=== PATIENT | male | born 1960 | race Caucasian/White ===

== ENCOUNTER 2016-08-21 09:03 | Emergency (ER) | payer OTHER ==
[~2016-08-21] VITALS: Ht 177.8 cm; Wt 97.3 kg
[~2016-08-21 09:03] MED LIST: TYLENOL 500MG500 MG PO; ZANTAC 150MG T150 MG PO
[2016-08-21 09:46] LABS: BASO % 0.4 % (0.0-2.0); EOS # 0.2 (0.0-0.7); EOS % 1.8 % (0-4.0); GRAN # 6.6 (1.4-6.5); GRAN % 79.4 % (42.2-75.2); HEMATOCRIT 45.9 % (42.0-52.0); HEMOGLOBIN 16.1 g/dl (13.5-18.0); LYMPH % 11.5 % (20.0-51.0); MEAN CELL VOLUME 89 fl (80.0-100.0); MEAN CORPUSCULAR HEMOGLOBIN 31 pg (27.0-31.0); MEAN CORPUSCULAR HGB CONC 35 g/dl (33.0-37.0); MONO # 0.5 (0.1-0.6); MONO % 6.5 % (1.7-9.3); PLATELET COUNT 264 K/mm3 (130-400); RED BLOOD COUNT 5.18 M/mm3 (4.20-5.60); WHITE BLOOD COUNT 8.3 K/mm3 (4.8-10.8)
[2016-08-21] MEDS ORDERED: ASPIRIN E.C. 8181 MG PO (09:53)
[2016-08-21] MEDS ORDERED: NEXIUM 20MG20 MG PO (09:53)
[2016-08-21 10:04] LABS: ADJUSTED CALCIUM 9.3 mg/dL (8.4-10.2); ALBUMIN 4.1 gm/dL (3.5-5.0); BILIRUBIN,TOTAL 0.8 mg/dL (0.0-1.0); CALCIUM 9.4 mg/dL (8.4-10.2); CREATININE, serum 0.69 mg/dL (0.66-1.25); POTASSIUM 4.2 mmol/L (3.4-5.0); TOTAL PROTEIN 6.8 gm/dL (6.4-8.2)
[2016-08-21 10:15] LABS: TROPONIN-I 0.029 ng/mL (0.000-0.034)
[2016-08-21] MEDS ORDERED: XARELTO20 MG PO (10:48)
[2016-08-21 11:43] VITALS: BP 142/121; PULSE 74; TEMP 97.8
[2016-12-18] MEDS ORDERED: ELIQUIS 5MG PO (09:26)
[2016-12-18] MEDS ORDERED: ASPIRIN E.C. 8181 MG PO (09:27)
[2016-12-18] MEDS ORDERED: VASOTEC 5MG5 MG/TAB PO (09:28)
[2016-12-18] MEDS ORDERED: NORCO 325 MG-51 TAB PO (13:48)
== END 2016-08-21 11:45 | disposition home or self-care (01) ==
LOC: COL.ER 09:03
PROVIDERS: Emergency Medicine
DX: I48.91 Unspecified atrial fibrillation (principal); I10 Essential (primary) hypertension; Z79.01 Long term (current) use of anticoagulants

== ENCOUNTER → 2016-08-26 | Outpatient (CLI) | payer OTHER ==
[~2016-08-26] VITALS: Ht 177.8 cm; Wt 97.0 kg
[~2016-08-26] MED LIST changes: +ASPIRIN E.C. 8181 MG PO; +ELIQUIS 5MG PO; +NEXIUM 20MG20 MG PO; +NORCO 325 MG-51 TAB PO; +VASOTEC 5MG5 MG/TAB PO; +XARELTO20 MG PO
[2016-08-26 10:55] VITALS: BP 169/105; PULSE 69
[2016-08-26 12:05] VITALS: BP 153/93; PULSE 71
[2016-08-26 12:08] VITALS: BP 157/99; PULSE 96
[2016-08-26 12:10] VITALS: BP 145/86; PULSE 89
== END ==
LOC: COL.CARD 10:27
DX: I48.0 Paroxysmal atrial fibrillation (principal)
CPT/HCPCS: A9502; J2785

== ENCOUNTER → 2016-09-16 | Outpatient (CLI) | payer OTHER | LOC: COL.CARD 07:16 | DX: I48.0 Paroxysmal atrial fibrillation (principal) ==

== ENCOUNTER → 2016-12-18 | Day surgery (SDC) | payer OTHER ==
[~2016-12-18] VITALS: Ht 177.8 cm; Wt 97.2 kg
[2016-12-18 08:40] VITALS: BP 155/93; PULSE 57; TEMP 97.7
[2016-12-18 12:31] VITALS: BP 124/78; PULSE 59
[2016-12-18 12:46] VITALS: BP 130/92; PULSE 61
[2016-12-18 13:01] VITALS: BP 135/90; PULSE 55
[2016-12-18 13:16] VITALS: BP 133/94; PULSE 50
[2016-12-18 14:00] VITALS: BP 135/82; PULSE 89
== END ==
LOC: SDCO 11-13 07:30
DX: D17.0 Benign lipomatous neoplasm of skin and subcutaneous tissue of head, face and neck (principal); D23.5 Other benign neoplasm of skin of trunk; I10 Essential (primary) hypertension; K21.9 Gastro-esophageal reflux disease without esophagitis; I48.91 Unspecified atrial fibrillation; Z79.01 Long term (current) use of anticoagulants; Z85.51 Personal history of malignant neoplasm of bladder
CPT/HCPCS: J0360; J0690; J2250; J2704; J3010; J7120

== ENCOUNTER → 2017-07-17 | Outpatient (CLI) | payer BC ==
[~2017-07-17] MED LIST changes: +MULTAQ400 MG PO; +NITROSTAT0.4 MG/TAB SL
== END ==
LOC: COL.RAD 13:58
DX: Z85.51 Personal history of malignant neoplasm of bladder (principal); N28.89 Other specified disorders of kidney and ureter; Z90.79 Acquired absence of other genital organ(s)
CPT/HCPCS: Q9967

== ENCOUNTER 2017-08-15 08:38 | Day surgery (SDC) | payer BC ==
[~2017-08-15] VITALS: Ht 177.8 cm; Wt 98.8 kg
[2017-08-15 10:25] VITALS: BP 137/90; PULSE 64; TEMP 98
[2017-08-15 13:50] VITALS: BP 145/87; PULSE 70
[2017-08-15 14:02] VITALS: TEMP 98.1
[2017-08-15 14:05] VITALS: BP 152/104; PULSE 67
[2017-08-15 14:20] VITALS: BP 106/101; PULSE 61
== END 2017-08-15 15:00 | disposition home or self-care (01) ==
LOC: SDCO 08:38
DX: C65.2 Malignant neoplasm of left renal pelvis (principal); Z85.51 Personal history of malignant neoplasm of bladder; I48.91 Unspecified atrial fibrillation; Z79.01 Long term (current) use of anticoagulants; N40.0 Benign prostatic hyperplasia without lower urinary tract symptoms; I10 Essential (primary) hypertension; Z85.72 Personal history of non-Hodgkin lymphomas; K21.9 Gastro-esophageal reflux disease without esophagitis; Z87.442 Personal history of urinary calculi
CPT/HCPCS: C1769; J0690; J1100; J2405; J2704; J3010; J7120; Q9967

== ENCOUNTER 2017-08-21 14:03 | Inpatient (IN) | payer BC ==
[~2017-08-21] VITALS: Ht 175.3 cm; Wt 99.1 kg
[2017-09-03] VITALS (11 sets, daily range): BP systolic 33–1216; BP diastolic 73–87; PULSE 54–64; TEMP 98–99.2
[2017-09-03 11:54] LABS: HEMATOCRIT 40.7 % (42.0-52.0); HEMOGLOBIN 13.9 g/dl (13.5-18.0); MEAN CELL VOLUME 92 fl (80.0-100.0); MEAN CORPUSCULAR HEMOGLOBIN 31 pg (27.0-31.0); MEAN CORPUSCULAR HGB CONC 34 g/dl (33.0-37.0); MEAN PLATELET VOLUME 8.7 fl (7.4-10.4); PLATELET COUNT 286 K/mm3 (130-400); RED BLOOD COUNT 4.42 M/mm3 (4.20-5.60); REDCELL DISTRIBUTION WIDTH-CV 12.5 % (11.5-14.5)
[2017-09-03 11:59] LABS: CALCIUM 8.8 mg/dL (8.4-10.2); CREATININE, serum 1.24 mg/dL (0.66-1.25)
[2017-09-03 12:41] LABS: BAND 7 % (0-10); LYMPHOCYTE 9 % (20.0-51.0); NEUTROPHILS 83 % (42.0-75.2); PLATELET ESTIMATE NORMAL (NORMAL)
[2017-09-04 02:07] VITALS: BP 108/66; PULSE 58; TEMP 98.5
[2017-09-04 05:50] VITALS: BP 109/75; PULSE 58; TEMP 98.2
[2017-09-04 07:05] LABS: BASO % 0.2 % (0.0-2.0); EOS # 0.1 (0.0-0.7); EOS % 0.7 % (0-4.0); GRAN # 7.7 (1.4-6.5); GRAN % 74.3 % (42.2-75.2); HEMATOCRIT 37.6 % (42.0-52.0); HEMOGLOBIN 12.5 g/dl (13.5-18.0); LYMPH # 1.5 (1.2-3.4); LYMPH % 14.8 % (20.0-51.0); MEAN CELL VOLUME 91 fl (80.0-100.0); MEAN CORPUSCULAR HEMOGLOBIN 30 pg (27.0-31.0); MEAN CORPUSCULAR HGB CONC 33 g/dl (33.0-37.0); MEAN PLATELET VOLUME 8.9 fl (7.4-10.4); MONO % 9.4 % (1.7-9.3); PLATELET COUNT 264 K/mm3 (130-400); RED BLOOD COUNT 4.12 M/mm3 (4.20-5.60); REDCELL DISTRIBUTION WIDTH-CV 12.5 % (11.5-14.5)
[2017-09-04 07:18] LABS: CALCIUM 8.5 mg/dL (8.4-10.2); CREATININE, serum 1.43 mg/dL (0.66-1.25); POTASSIUM 4.2 mmol/L (3.4-5.0)
[2017-09-04 10:24] VITALS: BP 104/65; PULSE 58; TEMP 98.5
[2017-09-04 13:25] VITALS: BP 101/61; PULSE 54; TEMP 98.1
[2017-09-04 17:31] VITALS: BP 116/71; PULSE 50; TEMP 97.4
[2017-09-04 20:54] VITALS: BP 114/63; PULSE 53; TEMP 98.3
[2017-09-05 02:18] VITALS: BP 118/76; PULSE 50; TEMP 98.5
[2017-09-05 05:12] VITALS: BP 115/73; PULSE 51; TEMP 98
[2017-09-05 10:15] VITALS: BP 117/64; PULSE 60; TEMP 98.2
[2017-09-05 13:28] VITALS: BP 132/72; PULSE 59; TEMP 98.1
== END 2017-09-05 14:38 | disposition home or self-care (01) | DRG 658 ==
LOC: INPTSU 09-03 06:07 → SURG 09-03 08:00
PROVIDERS: Urology
PROC: 0TT70ZZ Resection of Left Ureter, Open Approach (ICD-10-PCS; 2017-09-03)
PROC: 0TT10ZZ Resection of Left Kidney, Open Approach (ICD-10-PCS; principal; 2017-09-03 08:00)
DX: C65.2 Malignant neoplasm of left renal pelvis (principal); Z85.51 Personal history of malignant neoplasm of bladder; I10 Essential (primary) hypertension
CPT/HCPCS: A4314; J0461; J0690; J1100; J1650; J2250; J2405; J2704; J2710; J2765; J2795; J3010; J7120

== ENCOUNTER → 2017-09-10 | Outpatient (CLI) | payer BC | LOC: COL.RAD 11:00 | DX: C65.2 Malignant neoplasm of left renal pelvis (principal); Z98.890 Other specified postprocedural states; Z90.5 Acquired absence of kidney | CPT/HCPCS: Q9967 ==

== ENCOUNTER 2018-04-22 07:53 | Day surgery (SDC) | payer BC ==
[~2018-04-22] VITALS: Ht 175.3 cm; Wt 100.0 kg
[2018-04-22 08:28] VITALS: BP 131/93; PULSE 88; TEMP 97.9
[2018-04-22 09:16] LABS: CREATININE, serum 1.09 mg/dL (0.66-1.25); POTASSIUM 4.2 mmol/L (3.4-5.0)
[2018-04-22 20:18] VITALS: BP 119/68; PULSE 69; TEMP 97.6
[2018-04-23 00:55] VITALS: BP 106/62; PULSE 60; TEMP 98.1
[2018-04-23 04:37] VITALS: BP 125/72; PULSE 61; TEMP 97.7
[2018-04-23 06:18] LABS: BASO % 0.2 % (0.0-2.0); EOS % 0.2 % (0-4.0); GRAN # 14.5 (1.4-6.5); GRAN % 87.5 % (42.2-75.2); HEMATOCRIT 39.5 % (42.0-52.0); HEMOGLOBIN 13.5 g/dl (13.5-18.0); LYMPH # 1.1 (1.2-3.4); LYMPH % 6.9 % (20.0-51.0); MEAN CELL VOLUME 89 fl (80.0-100.0); MEAN CORPUSCULAR HEMOGLOBIN 30 pg (27.0-31.0); MEAN CORPUSCULAR HGB CONC 34 g/dl (33.0-37.0); MEAN PLATELET VOLUME 8.7 fl (7.4-10.4); MONO # 0.8 (0.1-0.6); MONO % 4.5 % (1.7-9.3); PLATELET COUNT 262 K/mm3 (130-400); RED BLOOD COUNT 4.45 M/mm3 (4.20-5.60); REDCELL DISTRIBUTION WIDTH-CV 12.1 % (11.5-14.5)
[2018-04-23 08:18] VITALS: BP 141/85; PULSE 65; TEMP 98.9
[2018-04-23 12:36] VITALS: BP 136/90; PULSE 60; TEMP 98
== END 2018-04-23 14:21 | disposition home or self-care (01) ==
LOC: SDCO 07:53 → SURG 14:00 → SDCO 04-23 14:21
PROVIDERS: Nurse Anesthetist, Certified Registered; Urology
DX: C67.1 Malignant neoplasm of dome of bladder (principal); C67.9 Malignant neoplasm of bladder, unspecified; N20.0 Calculus of kidney; Z87.442 Personal history of urinary calculi; N40.0 Benign prostatic hyperplasia without lower urinary tract symptoms; I10 Essential (primary) hypertension; I48.91 Unspecified atrial fibrillation; Z79.01 Long term (current) use of anticoagulants; Z79.899 Other long term (current) drug therapy; Z90.5 Acquired absence of kidney; Z90.6 Acquired absence of other parts of urinary tract; Z85.53 Personal history of malignant neoplasm of renal pelvis; Z85.51 Personal history of malignant neoplasm of bladder; K21.9 Gastro-esophageal reflux disease without esophagitis
CPT/HCPCS: OP; C1769; J0690; J1100; J2270; J2405; J2704; J3010; J3480; J7120; J9280; Q9967

== ENCOUNTER 2018-07-15 07:34 | Day surgery (SDC) | payer BC ==
[~2018-07-15] VITALS: Ht 177.8 cm; Wt 100.1 kg
[2018-07-15] VITALS (8 sets, daily range): BP systolic 118–143; BP diastolic 70–85; PULSE 50–61; TEMP 97.7–98.3
[2018-07-15] MEDS ORDERED: ELIQUIS 5MG PO (08:15)
[2018-07-16 00:14] VITALS: BP 124/61; PULSE 57; TEMP 98.3
[2018-07-16 03:58] VITALS: BP 119/77; PULSE 80; TEMP 98.6
[2018-07-16 09:12] VITALS: BP 116/63; PULSE 61; TEMP 98.6
== END 2018-07-16 11:56 | disposition home or self-care (01) ==
LOC: SDCO 07:34 → MEDICAL 12:55 → SURG 18:40 → SDCO 07-16 11:56
DX: C67.9 Malignant neoplasm of bladder, unspecified (principal); Z85.51 Personal history of malignant neoplasm of bladder; N40.0 Benign prostatic hyperplasia without lower urinary tract symptoms; Z85.53 Personal history of malignant neoplasm of renal pelvis; Z87.442 Personal history of urinary calculi; Z90.5 Acquired absence of kidney; Z79.899 Other long term (current) drug therapy; Z85.72 Personal history of non-Hodgkin lymphomas
CPT/HCPCS: A9284; J0690; J2405; J2704; J3010; J7120; J9280

== ENCOUNTER 2019-01-27 07:55 | Day surgery (SDC) | payer BC ==
[~2019-01-27] VITALS: Ht 177.8 cm; Wt 96.1 kg
[2019-01-27] VITALS (10 sets, daily range): BP systolic 124–141; BP diastolic 82–102; PULSE 52–74; TEMP 97.5–98.2
[2019-01-27] MEDS ORDERED: MULTAQ400 MG PO (08:42)
--- NOTE | 2019-01-27 12:30 | NUR ---
PATIENT ARRIVED TO ROOM 321-2 VIA BED FROM PACU. PATIENT IS A&OX4. POST-OP VSS. BOWEL SOUNDS ACTIVE ALL FOUR QUADRANTS. PATIENT TOLERATING CLEAR LIQUIDS WITHOUT ANY COMPLAINTS OF N/V. IV FLUIDS INFUSING TO LEFT HAND IV VIA GRAVITY FLOW TUBING. 3-WAY MASTERS CATHETER DRAINAGE CLEAR, PALE-YELLOW URINE WITH CBI INFUSING AT A MODERATE RATE. PRESENT AT THE BEDSIDE. CALL LIGHT WITHIN REACH. PATIENT DENIES ANY OTHER NEEDS AT THIS TIME.
--- NOTE | 2019-01-27 13:56 | NUR ---
Spoke with pt and his upon arrival to the floor. He reports having difficulty holding the mitomycin last time which is why they were hoping to do it in PACU but he recieved a B&O suppository and at 1335 following chemotherapy precautions, I instilled 40mg of mitomycin in 40ml into his clamped yen catheter. He and his will follow the routine of turning every 15 minutes and I will check on them periodically. He was given printed instructions regarding post mitomycin instillation. I emptied 900ml of pale yellow urine out of his yen bag prior to clamping his yen.
--- NOTE | 2019-01-27 14:20 | NUR ---
PATIENT IS EATING, DRINKING AND VOIDING WITHOUT DIFFICULTY. PATIENT PULLED OUT HIS LEFT HAND IV.
--- NOTE | 2019-01-27 15:00 | NUR ---
Pt is asleep at this check and tolerating having catheter clamped well. Will not awaken. is at bedside and denies questions or concerns. Will plan to prime and pull yen upon completion of mitomycin dwell time.
--- NOTE | 2019-01-27 16:11 | NUR ---
Called to bedside at 1525 to request that yen be unclamoped. This was 10 minutes early but I did unclamp the catheter and 500ml of clear purple tinted urine was returned. I then flushed bladder with 200ml of CBI which remained clear with no clots. i removed 30ml from yen catheter and removed the yen without difficulty. Penis cleansed. pt aware that must now do 6 bottle routine to verify ability to void. Planning on discharge later today. Chemotherapy precautions remain in effect with appropriate signage and supplies available. Report given to Sidra REYNOSO.
--- NOTE | 2019-01-27 17:30 | NUR ---
PATIENT DISCHARGE INSTRUCTIONS REVIEWED. ALL QUESTIONS ANSWERED. PATIENT PERSONAL BELONGINGS GATHERED. PATIENT AMBULATED TO PERSONAL VEHICLE WITH SURGICAL STAFF. PATIENT DISCHARGED.
== END 2019-01-27 17:30 | disposition home or self-care (01) ==
LOC: SDCO 07:55 → SURG 12:23 → SDCO 17:30
DX: C67.9 Malignant neoplasm of bladder, unspecified (principal); Z85.51 Personal history of malignant neoplasm of bladder; Z85.53 Personal history of malignant neoplasm of renal pelvis; N40.1 Benign prostatic hyperplasia with lower urinary tract symptoms; R31.9 Hematuria, unspecified; R35.0 Frequency of micturition; R35.1 Nocturia; R39.15 Urgency of urination; Z87.442 Personal history of urinary calculi; I10 Essential (primary) hypertension; Z90.5 Acquired absence of kidney; Z90.6 Acquired absence of other parts of urinary tract; Z85.72 Personal history of non-Hodgkin lymphomas; Z79.01 Long term (current) use of anticoagulants; Z79.899 Other long term (current) drug therapy; K21.9 Gastro-esophageal reflux disease without esophagitis
CPT/HCPCS: OP; J0690; J2405; J2704; J3010; J7120; J9280; Q9967

== ENCOUNTER 2019-04-27 12:06 | Observation (INO) | payer BC ==
[2019-04-27] VITALS (7 sets, daily range): BP systolic 115–150; BP diastolic 76–86; PULSE 50–66; TEMP 97.8–98.9
[~2019-04-27] VITALS: Ht 177.8 cm; Wt 96.3 kg
[2019-04-27] MEDS ORDERED: ELIQUIS 5MG PO (14:12)
[2019-04-27 16:27] LABS: BASO % 0.3 % (0.0-2.0); EOS # 0.2 (0.0-0.7); EOS % 1.5 % (0-4.0); GRAN # 8.1 (1.4-6.5); GRAN % 80.4 % (42.2-75.2); HEMATOCRIT 39.9 % (42.0-52.0); HEMOGLOBIN 13.4 g/dl (13.5-18.0); LYMPH # 1.2 (1.2-3.4); MEAN CELL VOLUME 90 fl (80.0-100.0); MEAN CORPUSCULAR HEMOGLOBIN 30 pg (27.0-31.0); MEAN CORPUSCULAR HGB CONC 34 g/dl (33.0-37.0); MONO # 0.5 (0.1-0.6); MONO % 5.2 % (1.7-9.3); PLATELET COUNT 271 K/mm3 (130-400); RED BLOOD COUNT 4.44 M/mm3 (4.20-5.60); REDCELL DISTRIBUTION WIDTH-CV 12.5 % (11.5-14.5)
[2019-04-27 16:30] LABS: INR 1.1 (0.8-3.0); PROTHROMBIN TIME 12.4 SECONDS (9.7-12.8)
[2019-04-27 16:49] LABS: ALANINE AMINOTRANSFERASE 23 U/L (21-72); ALBUMIN 4.2 gm/dL (3.5-5.0); ALKALINE PHOSPHATASE 84 U/L (50-136); ANION GAP 7 mmol/L (7-16); AST,SGOT 55 U/L (15-37); BILIRUBIN,TOTAL 0.5 mg/dL (0.0-1.0); BLOOD UREA NITROGEN 15 mg/dL (9-20); CARBON DIOXIDE 28 mmol/L (22-30); CHLORIDE 101 mmol/L (98-107); CHOLESTEROL 169 mg/dL (120-200); CHOLESTEROL RISK RATIO 4.5; CREATININE, serum 0.99 (0.66-1.25); GLUCOSE 85 mg/dL (74-106); HDL CHOLESTEROL 37 mg/dL; LDL CHOLESTEROL 101 mg/dL; MAGNESIUM 1.9 mg/dL (1.6-2.3); POTASSIUM 4.4 mmol/L (3.4-5.0); SODIUM 137 mmol/L (137-145); TOTAL PROTEIN 6.8 gm/dL (6.4-8.2); TRIGLYCERIDE 157 mg/dL
[2019-04-27 17:00] LABS: TROPONIN-I < 0.012 ng/mL (0.000-0.035)
--- NOTE | 2019-04-27 18:45 | NUR ---
Pt in room 308 at this time. He walked into room independently. He is A/O x4. His breathing is even and unlabored on RA. Pt denies SOB. Currently denies CP, during conversation patient reports slight pain returning to L chest. No N/T at this time. Reports recent increase of activity with use of L shoulder, unable to tell if it is shoulder/chest pain. Reports he checked his pulse which was regular, but has history of Afib. Pt does report some dizziness, worse with standing up quickly. Pt encouraged to change positions slowly. POC discussed with patient. Who will be on clear liquids until midnight followed by only bowel prep. Instructions to not consume caffeine discussed with patient. IV started to RFA. Tele in place. No needs at this time, call light within reach.
--- NOTE | 2019-04-27 19:50 | NUR ---
Shift assessment complete. Pt resting in bed, awake, a&o, cooperative c cares. Pt denies pain or other c/o at this time. IV patent. Tele in place. Pt denies needs. Call light in reach, will continue to monitor.
[2019-04-28] VITALS (13 sets, daily range): BP systolic 116–154; BP diastolic 59–90; PULSE 53–96; TEMP 97.9–98.5
[2019-04-28 06:10] LABS: BASO % 0.4 % (0.0-2.0); EOS # 0.3 (0.0-0.7); EOS % 4.2 % (0-4.0); GRAN # 4.3 (1.4-6.5); GRAN % 63.2 % (42.2-75.2); HEMOGLOBIN 12.2 g/dl (13.5-18.0); LYMPH # 1.6 (1.2-3.4); LYMPH % 23.3 % (20.0-51.0); MEAN CELL VOLUME 91 fl (80.0-100.0); MEAN CORPUSCULAR HEMOGLOBIN 30 pg (27.0-31.0); MEAN CORPUSCULAR HGB CONC 33 g/dl (33.0-37.0); MEAN PLATELET VOLUME 8.9 fl (7.4-10.4); MONO # 0.6 (0.1-0.6); MONO % 8.2 % (1.7-9.3); PLATELET COUNT 259 K/mm3 (130-400); RED BLOOD COUNT 4.09 M/mm3 (4.20-5.60); REDCELL DISTRIBUTION WIDTH-CV 12.7 % (11.5-14.5)
[2019-04-28 06:25] LABS: ANION GAP 7 mmol/L (7-16); BLOOD UREA NITROGEN 16 mg/dL (9-20); CALCIUM 8.5 mg/dL (8.4-10.2); CARBON DIOXIDE 28 mmol/L (22-30); CHLORIDE 103 mmol/L (98-107); CREATININE, serum 1.04 (0.66-1.25); GLUCOSE 85 mg/dL (74-106); MAGNESIUM 1.9 mg/dL (1.6-2.3); POTASSIUM 4.3 mmol/L (3.4-5.0); SODIUM 138 mmol/L (137-145)
[2019-04-28 06:35] LABS: TROPONIN-I < 0.012 ng/mL (0.000-0.035)
--- NOTE | 2019-04-28 08:12 | NUR ---
Pt down to endo at this time.
--- NOTE | 2019-04-28 09:19 | NUR ---
Pt back from colonoscopy. POC discussed with patient. No pain at this time.
--- NOTE | 2019-04-28 10:00 | NUR ---
Pt having loop recorder placed at this time.
--- NOTE | 2019-04-28 10:38 | NUR ---
Loop recorder placed. Pt comfortable at this time. Dressing to mid chest CDI. POC discussed with patient who verbalizes understanding.
--- NOTE | 2019-04-28 10:52 | NUR ---
Pt down for lexiscan at this time.
--- NOTE | 2019-04-28 12:05 | NUR ---
Pt assessment complete. At this time. Pt has finished procedures this am. No pain at this time. Pt asking if he can eat. POC discussed with patient who verbalizes understanding. Will await the doctor to see patient for further recommendations/orders. IVF hooked up to patient. No needs at this time. Call light within reach.
--- NOTE | 2019-04-28 15:36 | NUR ---
SW met with the patient, patient's (Lesia #[phone]), son-in-law, and [id number] to discuss discharge plan. The patient lives in [place] with his . He reports independence with ADLs and does not have any DME. The patient's PCP is Lance Venegas PA-C and he receives his medications from [facility]. He reports no difficulties obtaining his meds. The patient does not have advanced directives in EMR, but he states that he does have them completed. He states that his is his DPOA-HC. The patient plans to return back home with his upon discharge. No additional needs at this time.
[2019-04-28] MEDS ORDERED: LIPITOR 10MG10 MG PO (16:31)
--- NOTE | 2019-04-28 18:09 | NUR ---
Discharge paperwork and instructions reviewed with patient and . All questions answered at this time. IV to RFA dc'd catheter tip intact. RX for Keflex called in to patient's pharmacy. Pt walked out of facility at this time.
== END 2019-04-28 18:10 | disposition home or self-care (01) ==
LOC: MEDICAL 12:06
PROVIDERS: ADMIT Internal Medicine
DX: D12.0 Benign neoplasm of cecum (principal); I48.0 Paroxysmal atrial fibrillation; K92.1 Melena; K64.0 First degree hemorrhoids; K57.30 Diverticulosis of large intestine without perforation or abscess without bleeding; K21.9 Gastro-esophageal reflux disease without esophagitis; Z79.01 Long term (current) use of anticoagulants; F41.9 Anxiety disorder, unspecified; I10 Essential (primary) hypertension; Z85.51 Personal history of malignant neoplasm of bladder; Z90.5 Acquired absence of kidney; Z82.49 Family history of ischemic heart disease and other diseases of the circulatory system; Z82.3 Family history of stroke
CPT/HCPCS: A9500; C1764; G0008; G0378; J2250; J2405; J2765; J2785; J3010; J7030

== ENCOUNTER 2019-04-30 10:02 | Inpatient (IN) | payer BC ==
[~2019-04-30] VITALS: Ht 177.8 cm; Wt 100.4 kg
[~2019-04-30 10:02] MED LIST changes: +LIPITOR 10MG10 MG PO
[2019-04-30 11:00] VITALS: BP 116/73; PULSE 71
[2019-04-30 11:20] LABS: BASO % 0.5 % (0.0-2.0); EOS # 0.1 (0.0-0.7); EOS % 1.5 % (0-4.0); GRAN # 6.8 (1.4-6.5); GRAN % 79.7 % (42.2-75.2); HEMOGLOBIN 10.3 g/dl (13.5-18.0); LYMPH # 0.9 (1.2-3.4); LYMPH % 10.4 % (20.0-51.0); MEAN CELL VOLUME 92 fl (80.0-100.0); MEAN CORPUSCULAR HEMOGLOBIN 30 pg (27.0-31.0); MEAN CORPUSCULAR HGB CONC 33 g/dl (33.0-37.0); MONO # 0.6 (0.1-0.6); MONO % 7.4 % (1.7-9.3); PLATELET COUNT 255 K/mm3 (130-400); RED BLOOD COUNT 3.44 M/mm3 (4.20-5.60); REDCELL DISTRIBUTION WIDTH-CV 12.8 % (11.5-14.5)
[2019-04-30 11:24] LABS: HEMATOCRIT 31.6 % (42.0-52.0)
[2019-04-30 11:26] LABS: ALBUMIN 3.6 gm/dL (3.5-5.0); BILIRUBIN,TOTAL 0.3 mg/dL (0.0-1.0); CALCIUM 8.5 mg/dL (8.4-10.2); CREATININE, serum 1.12 (0.66-1.25); POTASSIUM 4.7 mmol/L (3.4-5.0); PROTHROMBIN TIME 11.2 SECONDS (9.7-12.8); TOTAL PROTEIN 5.9 gm/dL (6.4-8.2)
[2019-04-30 11:29] LABS: PARTIAL THROMBOPLASTIN TIME 27.4 SECONDS (26.0-37.0)
[2019-04-30] MEDS ORDERED: CEPHALEXIN500 M1 PO (11:56)
--- NOTE | 2019-04-30 13:18 | NUR ---
PATIENT ADMITED INTO ROOM 331 FROM ER WITH GI BLEED. PATIENT WAS SCHEDULED TO HAVE APT WITH TO DISCUSS RESULTS FROM RECENT COLONOSCOPY/BIOSPIES. ER REPORTED HAS BEEN NOTIFIED AND WILL SEE PATIENT LATER TODAY. PATIENT REPORTS HAVING BLOOD IN STOOLS, NOT SEEN BY NURSING YET. PATIENT ALSO TAKES ELIQUIS FOR HX OF A-FIB, LAST DOSE TAKEN WAS FRIDAY. TELE INPLACE. NPO. NS AT 125 INFUSING INTO LEFT AC IV VIA PUMP. HEAD TO TOE ASSESSMENT WNL. HEART SOUNDS REGULAR. ORIENTED TO ROOM. AT BEDSIDE. CALL LIGHT IN REACH.
[2019-04-30 13:28] VITALS: BP 127/79; PULSE 57; TEMP 98.9
[2019-04-30] MEDS ORDERED: ELIQUIS 5MG PO (13:35)
[2019-04-30 16:20] VITALS: BP 121/76; PULSE 59; TEMP 98.6
[2019-04-30 17:17] LABS: HEMATOCRIT 27.9 % (42.0-52.0); HEMOGLOBIN 9.1 g/dl (13.5-18.0)
[2019-04-30 20:00] VITALS: BP 124/78; PULSE 77; TEMP 98.2
[2019-04-30 21:18] VITALS: BP 122/76; PULSE 72; TEMP 98.4
--- NOTE | 2019-04-30 21:39 | NUR ---
Report received from ANGELES Mcclure. Patient resting in bed. Assessment complete. Family in room. Lungs CTA. Bowels active. Second dose of pre op antibiotics given. Bowel prep started. NS infusing at 125 ml/hr. Denies any pain at this time. No further needs at this time. Call light within reach.
--- NOTE | 2019-04-30 23:15 | NUR ---
Patient reports a headache and feeling nauseated. Called DWA[facility] Pichardo and received an order for tylenol and zofran. Adminsitered and will continue to monitor.
[2019-05-01] VITALS (12 sets, daily range): BP systolic 121–163; BP diastolic 67–678; PULSE 44–88; TEMP 97.9–98.6
--- NOTE | 2019-05-01 06:02 | NUR ---
Patient had uneventful night. Had one episode of nausea and a headache. Tylenol and zofran given. Bowel prep given. No further needs at this time. Call light within reach
--- NOTE | 2019-05-01 07:08 | NUR ---
Report given to ANGELES Lopez
[2019-05-01 07:29] LABS: CALCIUM 7.8 mg/dL (8.4-10.2); CREATININE, serum 1.02 (0.66-1.25); POTASSIUM 4.3 mmol/L (3.4-5.0)
[2019-05-01 07:49] LABS: BASO % 0.3 % (0.0-2.0); EOS # 0.3 (0.0-0.7); EOS % 4.2 % (0-4.0); GRAN # 4.9 (1.4-6.5); GRAN % 74.7 % (42.2-75.2); LYMPH # 0.9 (1.2-3.4); LYMPH % 13.9 % (20.0-51.0); MEAN CELL VOLUME 92 fl (80.0-100.0); MEAN CORPUSCULAR HGB CONC 34 g/dl (33.0-37.0); MEAN PLATELET VOLUME 9.2 fl (7.4-10.4); MONO # 0.4 (0.1-0.6); MONO % 6.6 % (1.7-9.3); PLATELET COUNT 232 K/mm3 (130-400); RED BLOOD COUNT 2.97 M/mm3 (4.20-5.60); REDCELL DISTRIBUTION WIDTH-CV 12.9 % (11.5-14.5)
[2019-05-01 07:55] LABS: HEMATOCRIT 27.2 % (42.0-52.0); HEMOGLOBIN 9.1 g/dl (13.5-18.0); MEAN CORPUSCULAR HEMOGLOBIN 31 pg (27.0-31.0)
--- NOTE | 2019-05-01 09:00 | NUR ---
No complaints. Dr. Gutierrez saw patient. NPO for surgery.
--- NOTE | 2019-05-01 12:21 | NUR ---
Engineering Geologist stopped by and prayed and offered support with patient while family was in room.
--- NOTE | 2019-05-01 13:55 | NUR ---
To surgery per bed with OR staff. Family here.
--- NOTE | 2019-05-01 19:00 | NUR ---
Patient arrived to unit from PACU. Patient is drowsy by oriented. Patient is complaining of nausea and pain. Patient has been sleeping on and off during assessment. Patient has 4 lap sites on the left side of the abdomen and a mini incision on the right. Patient has an IV in the Right AC and a yen catheter.
[2019-05-02] VITALS (8 sets, daily range): BP systolic 11–155; BP diastolic 60–96; PULSE 63–81; TEMP 97.9–98.8
--- NOTE | 2019-05-02 01:24 | NUR ---
Dr. Gutierrez notified about urine output (375ml since 1899), dark tea colored urine, and right flank pain. Vital signs stable. Fluids continue 75ml/hour. He states to continue to monitor.
--- NOTE | 2019-05-02 05:06 | NUR ---
Patient noted to have 25-30ml out of catheter since 0100. Urine appears to be slightly manufacturing project manager in color. Catheter advanced and flushed with 10ml NS and the NS was returned into the tubing. Notified Kylee of low output and she ordered 1000ml of NS over 2 hours and increase rate of LR to 125ml/hr after bolus is complete. Education provided to patient and spouse. Will continue to monitor.
[2019-05-02 06:17] LABS: MEAN CELL VOLUME 90 fl (80.0-100.0); MEAN CORPUSCULAR HGB CONC 34 g/dl (33.0-37.0); MEAN PLATELET VOLUME 9.2 fl (7.4-10.4); PLATELET COUNT 227 K/mm3 (130-400); REDCELL DISTRIBUTION WIDTH-CV 12.5 % (11.5-14.5)
[2019-05-02 06:19] LABS: HEMATOCRIT 25.3 % (42.0-52.0); HEMOGLOBIN 8.5 g/dl (13.5-18.0); MEAN CORPUSCULAR HEMOGLOBIN 30 pg (27.0-31.0)
[2019-05-02 06:34] LABS: CALCIUM 7.8 mg/dL (8.4-10.2); CREATININE, serum 1.03 (0.66-1.25); MAGNESIUM 1.6 mg/dL (1.6-2.3); PHOSPHOROUS 3.3 mg/dL (2.5-4.5); POTASSIUM 4.3 mmol/L (3.4-5.0)
[2019-05-02 07:39] LABS: BAND 6 % (0-10); LYMPHOCYTE 5 % (20.0-51.0); NEUTROPHILS 89 % (42.0-75.2); PLATELET ESTIMATE NORMAL (NORMAL)
--- NOTE | 2019-05-02 08:54 | NUR ---
Assessment completed, alert/oriented, vital signs stable, having some moderate generalized abd pain/ was given a oxycodone by night nurse early this morning and stated this has helped, he has also been up ambulating, BS+ but hypoactive still, reports passing a little flatus but not a lot, incision sites look good and abdomen is soft and non-distended, patient had low UOP over night and dark brownish red in color/ night nurse gave IVF bolus and then patient cath clotted off, I irrigated with saline and he passed multiple large clots and now urine is clear yellow with slight pink tinge at times, he feels releif of his bladder, I have notified of his urological issues/ we will remove the yen as patient stated in the past he does better passings clots once the catheter is removed, otherwise patient doing well/ tolerating CL diet well, heart RRR/ SR on tele, lugns CTA/no resp.difficulty noted, present in the room, will continue to monitor
--- NOTE | 2019-05-02 19:00 | NUR ---
REPORT RECEIVED FROM ANGELES CHEATHAM; CARE OF PT ASSUMED AT THIS TIME. BEDSIDE ROUNDS COMPLETED AND PT DENIES NEEDS AT THIS TIME. CALL LIGHT WITHIN REACH.
--- NOTE | 2019-05-02 20:24 | NUR ---
PT AWAKE, ALERT, OX4. AT BEDSIDE. PT REPORTS ABDOMINAL PAIN IS DECREASED AFTER PAIN MEDICATIONS, CURRENTLY RATES AT 5/10; ABD SOFT AND TENDER TO PALPATION. LAP SITES X4 AND MIDLINE LOW INCISION ALL OVERLAY PLASTICIAN WITH EDGES WELL APPROXIMATED AND NO DRAINAGE NOTED. PT DENIES ANY ISSUES VOIDING AT THIS TIME, REPORTS URINE IS YELLOW AND CLEAR AND FREE OF CLOTS. REPORTS PASSING FLATUS THIS EVENING BUT NO BM YET. PT DENIES NAUSEA, REPORTS GOOD INTAKE TODAY. IV SITE TO L AC WITH NO ISSUES WRAPPED WITH ALEN BANDAGE. PT DENIES ANY OTHER CONCERNS. CALL LIGHT WITHIN REACH.
[2019-05-03 04:00] VITALS: BP 121/70; PULSE 58; TEMP 98
--- NOTE | 2019-05-03 05:46 | NUR ---
PT HAS HAD A GOOD NIGHT, STATES HE HAS SLEPT INTERMITTENTLY THROUGH THE NIGHT. HE HAS CONTINUED TO REPORT CONSISTENT PAIN TO ABDOMEN, RATING 3-5/10 AND REQUESTING PAIN MEDICATIONS EVERY 4-6 HOURS, WHICH HE STATES HAS CONTROLLED HIS PAIN SUFFICIENTLY. PT REPORTS THAT HE HAS BEEN VOIDING WITHOUT ANY DIFFICULTIES BUT HAS BEEN A LITTLE BIT PINKISH IN COLOR, DENIES CLOTS. PT DENIES ANY OTHER CONCERNS. CALL LIGHT WITHIN REACH.
[2019-05-03 06:35] LABS: BASO % 0.3 % (0.0-2.0); EOS # 0.4 (0.0-0.7); EOS % 4.1 % (0-4.0); GRAN % 75.1 % (42.2-75.2); LYMPH # 1.5 (1.2-3.4); LYMPH % 13.8 % (20.0-51.0); MEAN CELL VOLUME 92 fl (80.0-100.0); MEAN CORPUSCULAR HGB CONC 34 g/dl (33.0-37.0); MEAN PLATELET VOLUME 8.8 fl (7.4-10.4); MONO # 0.7 (0.1-0.6); MONO % 6.3 % (1.7-9.3); PLATELET COUNT 208 K/mm3 (130-400); RED BLOOD COUNT 2.81 M/mm3 (4.20-5.60); REDCELL DISTRIBUTION WIDTH-CV 13.1 % (11.5-14.5)
[2019-05-03 06:36] LABS: HEMATOCRIT 25.8 % (42.0-52.0); HEMOGLOBIN 8.7 g/dl (13.5-18.0); MEAN CORPUSCULAR HEMOGLOBIN 31 pg (27.0-31.0)
[2019-05-03 06:47] LABS: CREATININE, serum 1.03 (0.66-1.25); MAGNESIUM 1.8 mg/dL (1.6-2.3); POTASSIUM 4.2 mmol/L (3.4-5.0)
--- NOTE | 2019-05-03 07:19 | NUR ---
REPORT GIVEN TO ANGELES PATTON.
[2019-05-03 08:25] VITALS: BP 120/76; PULSE 63; TEMP 98.6
--- NOTE | 2019-05-03 10:00 | NUR ---
PATIENT CALLED OUT STATING HE FELT LIKE HE WAS IN A-FIB. PATIENT ON TELE SHOWING SR IN THE 70-80'S. PATIENT REPORTS HIS HR IN USUALLY IN THE 50'S. PATIENT WAS GIVEN MULTAQ THIS AM. VITALS TAKE AGAIN AND ALL WNL. HEART SOUNDS REGULAR BUT NOTABLY LOUDER AND VISUALLY SEEN PALPATING IN CHEST & NECK. PATIENT REPORTS HE JUST FEELS WIERD AND ITS FREAKING HIM OUT. HOSPITALIST NOTIFIED. EKG NEGATIVE. SEE ORDERS FOR 1 GRAM IV MAG & TROPONIN. PATIENT DENIES CHEST PAIN OR SOB. WILL MONITOR.
--- NOTE | 2019-05-03 11:17 | NUR ---
Initial visit; Patient thanked Net Software Engineer for looking in on him and offering God's blessings though declined spiritual care at this time.
[2019-05-03 11:36] VITALS: BP 121/77; PULSE 73; TEMP 98.3
--- NOTE | 2019-05-03 14:22 | NUR ---
beet worker met with patient to discuss discharge planning. Patient states he lives with his in [place], [place] and will return there upon discharge. Patient states his primary care provider is PIPO James, through the [facility] in [place]. Patient denies difficulty obtaining his prescriptions and denies unmet concerns regarding discharging home.
[2019-05-03] MEDS ORDERED: PERCOCET 325 MG1 TA2 PO (15:43)
--- NOTE | 2019-05-03 16:40 | NUR ---
PATIENT DISCHARGING HOME VIA WHEELCHAIR TO PERSONAL VEHICLE WITH FAMILY. GAVE DISCHARGE INSTRUCTIONS, PRESCRIPTION & FOLLOW UP APTS. ANSWERED ALL QUESTIONS/CONCERNS. DC'D TELE. DC'D IV AND COVERED SITE WITH BANDAID. PATIENT DISCHARGED.
== END 2019-05-03 16:44 | disposition home or self-care (01) | DRG 330 ==
LOC: COL.ER 10:02 → SURG 11:31 → MEDICAL 11:31 → JCC 11:32 → SURG 05-01 19:14
PROVIDERS: Emergency Medicine; Hospitalist; Physician Assistant; Surgery; ADMIT Family Medicine
PROC: 0DTF4ZZ Resection of Right Large Intestine, Percutaneous Endoscopic Approach (ICD-10-PCS; principal; 2019-05-02)
PROC: 8E0W4CZ Robotic Assisted Procedure of Trunk Region, Percutaneous Endoscopic Approach (ICD-10-PCS; 2019-05-02)
DX: C18.0 Malignant neoplasm of cecum (principal); N99.821 Postprocedural hemorrhage of a genitourinary system organ or structure following other procedure; I48.91 Unspecified atrial fibrillation; I10 Essential (primary) hypertension; E78.5 Hyperlipidemia, unspecified; K21.9 Gastro-esophageal reflux disease without esophagitis; K57.30 Diverticulosis of large intestine without perforation or abscess without bleeding; D63.0 Anemia in neoplastic disease; M19.90 Unspecified osteoarthritis, unspecified site; Z79.01 Long term (current) use of anticoagulants; Z85.528 Personal history of other malignant neoplasm of kidney; Z85.51 Personal history of malignant neoplasm of bladder; Z90.5 Acquired absence of kidney; Z87.442 Personal history of urinary calculi; R31.9 Hematuria, unspecified
CPT/HCPCS: 99222-AI; 99231-AI; 99232-AI; 99239; A4314; A9284; C9113; J2270; J2370; J2405; J2550; J2704; J2710; J3010; J3475; J7030; J7120; Q9967

== ENCOUNTER 2019-09-10 13:31 | Day surgery (SDC) | payer BC ==
[~2019-09-10] VITALS: Ht 175.3 cm; Wt 100.0 kg
[~2019-09-10 13:31] MED LIST changes: +CEPHALEXIN500 M1 PO; +PERCOCET 325 MG1 TA2 PO
[2019-09-10 14:22] VITALS: BP 123/87; PULSE 65; TEMP 98.2
[2019-09-10 17:20] VITALS: BP 129/79; PULSE 75; TEMP 98
--- NOTE | 2019-09-10 17:20 | NUR ---
The patient arrived back to [facility] from the operating room at this time. The patient appears alert and oriented and is drinking water and appears to be tolerating it well. The patient's post operative vital signs were started at this time. The patient requests to try to use the bathroom at this time. The patient ambulated across the gallagher to the bathroom and voided without difficulty. The patient's family was brought back to be at his bedside. Will continue to monitor the patient.
[2019-09-10] MEDS ORDERED: NORCO 325 MG-51 TAB PO (17:34)
[2019-09-10] MEDS ORDERED: PYRIDIUM 100MG100 MG PO (17:34)
[2019-09-10 17:35] VITALS: BP 143/89; PULSE 76
--- NOTE | 2019-09-10 17:35 | NUR ---
The patient's vital signs continue to remain stable and he voices a desire to be discharged home. The patient is dressed and ready to review his discharge instructions.
--- NOTE | 2019-09-10 17:40 | NUR ---
Discharge instructions were reviewed with the patient and his at this time. They both verbalized understanding and have no questions for the nurse at this time. The patient's IV to his left forearm was removed and a pressure dressing was applied to the site.
--- NOTE | 2019-09-10 17:45 | NUR ---
The patient was escorted out to a private vehicel by ANGELES Laurent. The patient's belongings and discharge paperwowrk were sent with him. The patient's is present to drive him home.
[2019-09-10 19:18] VITALS: BP 129/79; PULSE 75
== END 2019-09-10 17:45 | disposition home or self-care (01) ==
LOC: SDCO 13:31
DX: C67.0 Malignant neoplasm of trigone of bladder (principal); N40.0 Benign prostatic hyperplasia without lower urinary tract symptoms; I10 Essential (primary) hypertension; K21.9 Gastro-esophageal reflux disease without esophagitis; I48.0 Paroxysmal atrial fibrillation; Z85.72 Personal history of non-Hodgkin lymphomas; Z79.01 Long term (current) use of anticoagulants; Z90.49 Acquired absence of other specified parts of digestive tract; Z84.1 Family history of disorders of kidney and ureter; Z85.038 Personal history of other malignant neoplasm of large intestine
CPT/HCPCS: C1769; J0360; J0690; J2704; J3010; J7120; Q9967

== ENCOUNTER 2020-06-06 02:44 | Emergency (ER) | payer BC ==
[~2020-06-06] VITALS: Ht 175.3 cm; Wt 97.3 kg
[~2020-06-06 02:44] MED LIST changes: +PYRIDIUM 100MG100 MG PO
[2020-06-06 02:50] VITALS: TEMP 98.8
[2020-06-06 03:11] LABS: BASO % 0.3 % (0.0-2.0); EOS # 0.3 (0.0-0.7); EOS % 2.7 % (0-4.0); GRAN # 7.1 (1.4-6.5); GRAN % 74.8 % (42.2-75.2); HEMATOCRIT 44.5 % (42.0-52.0); HEMOGLOBIN 15.3 g/dl (13.5-18.0); LYMPH # 1.3 (1.2-3.4); LYMPH % 13.1 % (20.0-51.0); MEAN CELL VOLUME 90 fl (80.0-100.0); MEAN CORPUSCULAR HEMOGLOBIN 31 pg (27.0-31.0); MEAN CORPUSCULAR HGB CONC 34 g/dl (33.0-37.0); MEAN PLATELET VOLUME 8.5 fl (7.4-10.4); MONO # 0.8 (0.1-0.6); MONO % 8.6 % (1.7-9.3); PLATELET COUNT 283 K/mm3 (130-400); RED BLOOD COUNT 4.95 M/mm3 (4.20-5.60); REDCELL DISTRIBUTION WIDTH-CV 12.3 % (11.5-14.5)
[2020-06-06 03:14] LABS: PROTHROMBIN TIME 10.6 SECONDS (9.7-12.8)
[2020-06-06 03:17] LABS: PARTIAL THROMBOPLASTIN TIME 33.9 SECONDS (26.0-37.0)
[2020-06-06 03:20] LABS: ALANINE AMINOTRANSFERASE 24 U/L (4-49); ALBUMIN 4.1 gm/dL (3.5-5.0); ALKALINE PHOSPHATASE 83 U/L (50-136); ANION GAP 7 mmol/L (7-16); AST,SGOT 57 U/L (15-37); BILIRUBIN,TOTAL 0.5 mg/dL (0.0-1.0); BLOOD UREA NITROGEN 20 mg/dL (9-20); CALCIUM 9.2 mg/dL (8.4-10.2); CARBON DIOXIDE 26 mmol/L (22-30); CHLORIDE 104 mmol/L (98-107); CREATININE, serum 0.91 (0.66-1.25); GLUCOSE 110 mg/dL (74-106); LIPASE 93 U/L (23-300); POTASSIUM 4.7 mmol/L (3.4-5.0); SODIUM 136 mmol/L (137-145); TOTAL PROTEIN 6.4 gm/dL (6.4-8.2)
[2020-06-06 03:31] LABS: TROPONIN-I < 0.012 ng/mL (0.000-0.035)
[2020-06-06] MEDS ORDERED: ELIQUIS 5MG PO (05:42)
[2020-06-06 07:32] VITALS: BP 108/93; PULSE 89
== END 2020-06-06 07:05 | disposition home or self-care (01) ==
LOC: COL.ER 02:44
PROVIDERS: Emergency Medicine
DX: I48.91 Unspecified atrial fibrillation (principal); Z86.79 Personal history of other diseases of the circulatory system; Z79.01 Long term (current) use of anticoagulants
CPT/HCPCS: J7030

== ENCOUNTER 2022-04-13 09:12 | Emergency (ER) | payer OTHER ==
[~2022-04-13] VITALS: Ht 177.8 cm; Wt 97.3 kg
[2022-04-13 09:20] VITALS: TEMP 98.6
[2022-04-13 09:52] LABS: BASO % 0.3 % (0.0-2.0); EOS # 0.2 K/mm3 (0.0-0.7); EOS % 2.9 % (0.0-4.0); GRAN # 4.9 K/mm3 (1.4-6.5); GRAN % 72.6 % (42.2-75.2); HEMATOCRIT 48.3 % (42.0-52.0); HEMOGLOBIN 16.7 g/dl (13.5-18.0); LYMPH # 1.2 K/mm3 (1.2-3.4); MEAN CELL VOLUME 89 fl (80.0-100.0); MEAN CORPUSCULAR HEMOGLOBIN 31 pg (27-31); MEAN CORPUSCULAR HGB CONC 35 g/dl (33.0-37.0); MEAN PLATELET VOLUME 8.7 fl (7.4-10.4); MONO # 0.5 K/mm3 (0.1-0.6); MONO % 6.8 % (1.7-9.3); PLATELET COUNT 270 K/mm3 (130-400); RED BLOOD COUNT 5.41 M/mm3 (4.20-5.60); REDCELL DISTRIBUTION WIDTH-CV 12.3 % (11.5-14.5)
[2022-04-13 09:54] LABS: PROTHROMBIN TIME 11.3 SECONDS (9.7-12.8)
[2022-04-13 09:57] LABS: PARTIAL THROMBOPLASTIN TIME 32.2 SECONDS (26.0-37.0)
[2022-04-13 10:08] LABS: BILIRUBIN,TOTAL 0.8 mg/dL (0.2-1.2); CALCIUM 9.3 mg/dL (8.4-10.2); CREATININE, serum 0.85 mg/dL (0.72-1.25); POTASSIUM 4.2 mmol/L (3.5-4.5); TOTAL PROTEIN 6.8 gm/dL (6.2-8.1)
[2022-04-13 10:14] LABS: TROPONIN-I 0.013 ng/mL (0.00-0.033)
[2022-04-13] MEDS ORDERED: TOPROL XL 25MG25 MG PO ×3 (10:40→11:06)
[2022-04-13] MEDS ORDERED: ELIQUIS 5MG PO ×3 (10:40→11:06)
[2022-04-13 11:10] VITALS: BP 127/95; PULSE 71
== END 2022-04-13 11:10 | disposition home or self-care (01) ==
LOC: COL.ER 09:12
PROVIDERS: Emergency Medicine
DX: I48.91 Unspecified atrial fibrillation (principal); Z86.79 Personal history of other diseases of the circulatory system; Z79.01 Long term (current) use of anticoagulants

== ENCOUNTER → 2022-09-12 | Outpatient (CLI) | payer OTHER ==
[~2022-09-12] MED LIST changes: +NORVASC 10MG10 MG PO; +TAMBOCOR50 MG PO; +TOPROL XL 25MG25 MG PO
== END ==
LOC: COL.RAD 07:20
DX: K57.30 Diverticulosis of large intestine without perforation or abscess without bleeding (principal); Z98.890 Other specified postprocedural states; N20.0 Calculus of kidney; C18.0 Malignant neoplasm of cecum; Z90.5 Acquired absence of kidney
CPT/HCPCS: Q9967